=== PATIENT | female | born 1970 | race Caucasian/White ===

== ENCOUNTER 2020-07-18 09:32 | Outpatient (CLI) | payer OTHER, SELFPAY ==
--- NOTE | ~2020-07-18 | US_ITS ---
EXAMINATION:US venous doppler LE RT INDICATION:Right calf pain TECHNIQUE: Multiple grayscale, color flow and Doppler images of the right lower extremity deep venous systems were obtained and reviewed. COMPARISON:09/06/2018 FINDINGS: The common femoral, superficial femoral and popliteal veins demonstrate normal respiratory variation, augmentation and compressibility. Color flow is also seen within the posterior tibial, pe roneal, greater saphenous and profunda veins. IMPRESSION: 1: No lower extremity deep venous thrombosis. Reviewed, dictated and finalized at location B.
== END 2020-07-18 09:33 | disposition home or self-care (01) ==
PROVIDERS: PCP Physician Assistant; Visit Provider Physician Assistant
DX: M79.661 Pain in right lower leg (principal)
CPT/HCPCS: 93971

== ENCOUNTER 2021-08-11 15:05 | Outpatient (CLI) | payer OTHER, SELFPAY ==
--- NOTE | 2021-08-12 12:14 | WPDPFTINT ---
PFT Procedure Performed PFT Procedure Performed Spirometry with Pre/Post Bronchodilator Plethysmography (Lung Vol) Diffusing Cap (DLCO) Flow Vol Loop PFT Interpretation This is a pulmonary function test with pre and post-bronchodilator spirometry, plethysmography and diffusing capacity. The test was performed and results interpreted in accordance with the 2019 and 2005 ATS/ERS Task Force guidelines respectively using the Global Lung Function Initiative-2012 reference equations. Patient demonstrated good effort and cooperation. Reproducibility criteria were met. The quality of the pre bronchodilator spirometry maneuver was Grade B and post bronchodilator spirometry maneuver was Grade A. Findings: Spirometry: The contour the inspiratory and expiratory flow tracing are normal. The pre bronchodilator FVC is 3.40 L, 93% predicted. The pre bronchodilator FEV1 is 2.79 L, 96% predicted. The FEV1: FVC ratio is 82%. The post bronchodilator FVC is 3.35 L, representing 1% decrease. The post bronchodilator FEV1 is 2.65 L, representing a 5% decrease. Plethysmography: The total lung capacity is 5.04 L, 94% predicted. The functional residual capacity is 2.70 L, 89% predicted. The residual volume is 1.53 L, 79% predicted. Diffusion capacity: The absolute diffusion capacity is 21.7, 93% predicted. The diffusing capacity corrected for alveolar volume is 5.10, 114% predicted. Impression: The spirometry is normal without evidence of an obstructive abnormality. There is no significant improvement after inhaling a single dose of albuterol. The lung volumes are normal. The diffusing capacity is normal. There are no prior studies for comparison
== END 2021-08-11 15:06 | disposition home or self-care (01) ==
LOC: ANHPFT 15:07
PROVIDERS: PCP Physician Assistant; Visit Provider Physician Assistant
DX: R05.3 Chronic cough (principal)
CPT/HCPCS: 94060; 94726; 94729

== ENCOUNTER → 2022-02-02 10:57 | Outpatient (CLI) | payer OTHER, SELFPAY ==
--- NOTE | ~2022-02-02 | XR_ITS ---
EXAMINATION: XR chest 2V DATE: 02/02/2022 11:27 INDICATION: Cough TECHNIQUE: PA and lateral views of the chest are obtained. COMPARISON: 02/27/2019 FINDINGS: There are subtle, patchy airspace opacities of the left midlung zone. There is no pleural e ffusion or pneumothorax. The cardiomediastinal silhouette is normal. The visualized bones and soft ti ssues are unremarkable. IMPRESSION: 1. Patchy airspace opacities of the left midlung zone, likely pneumonia. Reviewed, dictated and finalized at location B.
== END ==
PROVIDERS: PCP Physician Assistant; Visit Provider Physician Assistant
DX: R05.1 Acute cough (principal); R91.8 Other nonspecific abnormal finding of lung field
CPT/HCPCS: 71046

== ENCOUNTER → 2022-02-12 10:02 | Outpatient (CLI) | payer OTHER, SELFPAY ==
--- NOTE | ~2022-02-12 | XR_ITS ---
EXAMINATION: XR chest 2V 02/12/2022 10:27 INDICATION: Pneumonia PROCEDURE: 2 view chest COMPARISON: 02/02/2022 FINDINGS: The lungs are clear. The cardiomediastinal silhouette is within normal limits. There are no pleural effusions. There is no pneumothorax suspected. IMPRESSION: 1: NO ACUTE CARDIOPULMONARY DISEASE. Reviewed, dictated and finalized at location A.
== END ==
PROVIDERS: PCP Physician Assistant; Visit Provider Physician Assistant
DX: J18.9 Pneumonia, unspecified organism (principal)
CPT/HCPCS: 71046

== ENCOUNTER 2022-04-18 11:09 | Outpatient (CLI) | payer OTHER, SELFPAY ==
[2022-04-18 12:17] LABS: D Dimer 0.61 ug/mL (<0.48)
== END 2022-04-18 11:10 | disposition home or self-care (01) ==
LOC: ANHLAB 11:11
PROVIDERS: PCP Physician Assistant; Visit Provider Physician Assistant
DX: Z86.711 Personal history of pulmonary embolism (principal)
CPT/HCPCS: 36415; 85380

== ENCOUNTER 2022-04-18 15:30 | Outpatient (CLI) | payer OTHER, SELFPAY ==
--- NOTE | ~2022-04-18 | US_ITS ---
EXAMINATION: US venous doppler LE RT DATE: 04/18/2022 15:57 INDICATION: D-DIMER ABOVE REFERENCE RANGE, . Right lower limb pain. TECHNIQUE: Grayscale images without and with compression and Doppler images of the right lower extrem ity veins were obtained. COMPARISON: None FINDINGS: The right common femoral vein, profunda (deep) femoral vein, femoral vein, popliteal vein, peroneal v ein, posterior tibial veins, gastrocnemius vein, and greater saphenous vein are patent. IMPRESSION: 1. Patent right lower extremity veins. No evidence of deep venous thrombosis. Reviewed, dictated and finalized at location K.
== END 2022-04-18 15:31 | disposition home or self-care (01) ==
PROVIDERS: PCP Physician Assistant; Visit Provider Physician Assistant
DX: R79.1 Abnormal coagulation profile (principal)
CPT/HCPCS: 36415; 85380; 93971

== ENCOUNTER → 2022-06-13 07:46 | Outpatient (CLI) | payer OTHER, SELFPAY ==
--- NOTE | ~2022-06-13 | CT_ITS ---
EXAMINATION: CTA chest PE protocol DATE: 06/13/2022 08:42 INDICATION: Shortness of breath TECHNIQUE: Computed tomography angiography (CTA) of the chest was performed with 100 mL Omnipaque-350 intravenous contrast timed to evaluate the pulmonary arteries. Coronal maximum intensity projection 3D-reconstructions were created by the technologist. The dose-length product (DLP) was 499.10 mGy-cm. Automated exposure control and iterative reconstruction technique were employed. COMPARISON: 02/27/2019 FINDINGS: The pulmonary arteries are well-opacified. No pulmonary embolism is identified. There are scattered stable pulmonary nodules measuring up to 4 mm. Mild dependent atelectasis is noted. No pleu ral effusion or pneumothorax. No pathologically enlarged thoracic lymph nodes are identified. The hea rt size is normal. Right thyroid nodules measure up to 1.5 cm. There is mild thoracic spondylosis. IMPRESSION: 1. No pulmonary embolism or acute cardiopulmonary abnormality. 2. Right thyroid nodules measuring up to 1.5 cm. Consider thyroid ultrasound for risk stratification. Reviewed, dictated and finalized at location B. IMPRESSION: 1. No pulmonary embolism or acute cardiopulmonary abnormality. 2. Right thyroid nodules measuring up to 1.5 cm. Consider thyroid ultrasound fo r risk stratification.
--- NOTE | ~2022-06-13 | MR_ITS ---
EXAMINATION: MR lumbar spine wo con DATE: 06/13/2022 08:22 INDICATION: Lumbar radiculopathy. Low back pain. TECHNIQUE: Magnetic resonance imaging (MRI) of the lumbar spine was performed without intravenous con trast. Sequences included sagittal T2-weighted FSE, sagittal T2-weighted FS FSE, sagittal T1-weighted FSE, and axial T2-weighted FSE. COMPARISON: None FINDINGS: There is 11 degrees levoscoliosis of lumbar spine. There is 3 mm retrolisthesis of L4 on L5 . Vertebral body heights are normal. There is mildly decreased disc height at L2-L3. The distal spina l cord signal intensity is normal. The conus medullaris is at L1-L2. The following disc levels are sp ecifically discussed: L1-L2: There is a right central protrusion. There is mild bilateral facet joint osteoarthritis. There is no neural foraminal stenosis. There is mild central canal stenosis. L2-L3: The disc is bulging and has an annular fissure. There is mild bilateral facet joint osteoarthr itis. There is mild bilateral neural foraminal stenosis. There is mild central canal stenosis. L3-L4: The disc is bulging and has an annular fissure. There is severe bilateral facet joint osteoart hritis. There is mild bilateral neural foraminal stenosis. There is mild central canal stenosis. L4-L5: The disc is bulging and has an annular fissure. There is severe bilateral facet joint osteoart hritis. There is mild bilateral neural foraminal stenosis. There is mild central canal stenosis. L5-S1: The disc is bulging and has an annular fissure. There is moderate bilateral facet joint osteoa rthritis. There is mild bilateral neural foraminal stenosis. There is mild central canal stenosis. IMPRESSION: 1. Mild lumbar spondylosis. 2. Lumbar levoscoliosis. Reviewed, dictated and finalized at location A.
== END ==
PROVIDERS: PCP Physician Assistant; Visit Provider Physician Assistant
DX: R79.1 Abnormal coagulation profile (principal); E04.2 Nontoxic multinodular goiter; M47.26 Other spondylosis with radiculopathy, lumbar region
CPT/HCPCS: 71275; 72148; Q9967

== ENCOUNTER → 2022-09-26 14:17 | Outpatient (CLI) | payer OTHER, SELFPAY ==
--- NOTE | ~2022-09-26 | CT_ITS ---
EXAMINATION: CT abdomen pelvis w con DATE: 09/26/2022 15:31 INDICATION: Left upper quadrant abdominal pain TECHNIQUE: Computed tomography (CT) of the abdomen and pelvis was performed with 100 mL Omnipaque-350 intravenous contrast. Automated exposure control and iterative reconstruction technique were employe d. The dose-length product was 917.20 mGy-cm. COMPARISON: None FINDINGS: Mild atelectasis at the bilateral lung bases. Heart size is normal. No pericardial or pleural effusio n. 4 mm cyst in the right hepatic lobe. The gallbladder, spleen, pancreas, bilateral adrenal glands a nd kidneys are normal. There are few scattered colonic diverticula without adjacent inflammatory alexander ge to suggest diverticulitis. Small bowel and appendix are normal. Tiny fat-containing umbilical rik ia. Bladder, anteverted uterus and bilateral adnexa are unremarkable. No free intraperitoneal gas or fluid. No pathologically enlarged abdominal or pelvic lymphadenopathy. Mild upper lumbar levocurvatur e with moderate spondylosis. IMPRESSION: 1. No acute intra-abdominal/pelvic process. Reviewed, dictated and finalized at location A. 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
== END ==
PROVIDERS: PCP Physician Assistant; Visit Provider Physician Assistant
DX: R10.12 Left upper quadrant pain (principal)
CPT/HCPCS: 74177; Q9967

== ENCOUNTER → 2023-11-25 13:00 | Outpatient (CLI) | payer OTHER, SELFPAY ==
--- NOTE | ~2023-11-25 | MM_ITS ---
EXAMINATION: MM screening ml BI w cortes HISTORY: Screening TECHNIQUE: Craniocaudal and mediolateral oblique 3-D tomosynthesis images were obtained and synthetic 2-D images were generated. CAD analysis was submitted and interpreted. COMPARISON: Comparison to multiple prior studies sequentially, with oldest reviewed study dated 11/2013. BREAST PARENCHYMAL COMPOSITION: There are scattered areas of fibroglandular density. FINDINGS: There is no evidence of suspicious mass, calcification, or architectural distortion to sugg est malignancy in either breast. There has been no suspicious interval change. IMPRESSION: 1. No mammographic evidence of malignancy. 2. Recommend routine screening mammography in one year. BI-RADS Category 1: Negative Reviewed, dictated and finalized at location A. 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
== END ==
PROVIDERS: PCP Obstetrics & Gynecology; Visit Provider Obstetrics & Gynecology
DX: Z12.31 Encounter for screening mammogram for malignant neoplasm of breast (principal)
CPT/HCPCS: 77063; 77067

== ENCOUNTER 2024-03-16 15:58 | Outpatient (CLI) | payer OTHER, SELFPAY ==
--- NOTE | ~2024-03-16 | XR_ITS ---
EXAMINATION: XR chest 2V 03/16/2024 16:10 INDICATION: Chronic cough PROCEDURE: 2 view chest COMPARISON: Comparison to multiple prior studies sequentially, with oldest reviewed study dated 07/01. FINDINGS: The lungs are clear. The cardiomediastinal silhouette is within normal limits. There are no pleural effusions. There is no pneumothorax suspected. IMPRESSION: 1: NO ACUTE CARDIOPULMONARY DISEASE. Reviewed, dictated and finalized at location B.
== END 2024-03-16 15:59 ==
LOC: MICIMG 15:59
PROVIDERS: PCP Obstetrics & Gynecology; Visit Provider Physician Assistant
DX: R05.3 Chronic cough (principal)
CPT/HCPCS: 71046

== ENCOUNTER 2024-04-29 18:41 | Emergency (ER) | payer OTHER, SELFPAY ==
--- NOTE | ~2024-04-29 | XR_ITS ---
EXAMINATION: XR foot RT min 3V DATE: 04/29/2024 19:02 INDICATION: Right foot pain post injury TECHNIQUE: Dorsoplantar, two oblique and lateral views of the right foot were obtained. COMPARISON: None. FINDINGS: 25 degrees hallux valgus and bunion with mild hypertrophic change at the medial head of the first met atarsal. No fracture or traumatic malalignment. Mild osteoarthritis at the first metatarsophalangeal joint but with moderate osteoarthritis at the articulation with the first metatarsal sesamoids. Addit ional mild osteoarthritis at a few of the tarsal metatarsal and interphalangeal joints. Soft tissues are unremarkable. IMPRESSION: 1. No acute osseous abnormality. 2. Hallux valgus with bunion and mild to moderate polyarticular osteoarthritis. Reviewed, dictated and finalized at location A.
--- NOTE | 2024-04-29 18:44 | ED.LOWEXIN ---
HPI - Extremity Injury (Lower) General Chief Complaint: Extremity Injury, Lower Stated Complaint: INJURED R FOOT Time Seen by Provider: 04/29/24 18:43 Source: patient Mode of arrival: ambulatory Limitations: no limitations History of Present Illness HPI Narrative: Loreta is a 53-year-old female patient presenting to the clinic today with complaints of a right foot injury. She reports she tripped over her foot today and twisted it and is having pain to the midfoot in between the great toe and 2nd toe. States pain is worse with bearing weight Related Data Home Medications Medication Instructions Recorded Confirmed clobetasol 0.05 % topical ointment 1 applic topical DIRECTED 04/29/24 04/29/24 meloxicam 15 mg tablet 15 mg PO DIRECTED 04/29/24 04/29/24 pimecrolimus 1 % topical cream 1 applic topical DIRECTED 04/29/24 04/29/24 Allergies Allergy/AdvReac Type Severity Reaction Status Date / Time No Known Allergies Allergy Unverified 04/29/24 18:47 Review of Systems Review of Systems: Pertinent positives per HPI. Patient denies any fever, chills, rash, headache, visual changes, dizziness, cough, runny nose, sore throat, shortness of breath, chest pain, palpitations, nausea, vomiting, diarrhea, constipation, abdominal pain, or any urinary issues. PMFSH Comments At the time of my signature, I reviewed and agree with the nursing past medical, surgical, social, and family history. There is no relevant family history pertinent to the patient complaint. Exam Narrative: General: Well-developed, well nourished, in no apparent distress Head: Normocephalic, atraumatic. Cardio: Regular rate and rhythm, s1 and s2 normal, no murmur appreciated. Resp: Clear to auscultation bilaterally, no rhonchi, rales, wheezing or rubs. Musculoskeletal: No deformity, tender to palpation over the midfoot in between the great toe and 2nd toe, grossly normal range of motion, muscle strength strong and equal, peripheral pulse strong, no edema, no cyanosis, normal gait and station Course Course Emergency Course: Portions of this record may have been created with voice recognition software. Level of Care: Express Care Visit Vital Signs Vital signs: Vital signs reviewed MDM - Extremity Injury (Lower) MDM Narrative Medical decision making narrative: At the time of visit patient is resting comfortably on the exam table. Patient appears to be nontoxic. Diagnostics: X-ray of the right foot she is negative for any sign of fracture or malalignment Plan: I suspect patient has acute pain/foot sprain. Supportive measures were discussed with the patient and they voiced understanding discharge instructions and agrees to treatment plan. Return precautions reviewed Differential Diagnosis Differential diagnosis: Likely ankle sprain and strain, fracture of toe and other (Foot fracture) Imaging Data Radiologist's impression: ITS Impressions Foot X-Ray 04/29/24 19:16 IMPRESSION: 1. No acute osseous abnormality. 2. Hallux valgus with bunion and mild to moderate polyarticular osteoarthritis. Discharge Plan Discharge Clinical Impression: Acute foot pain Qualifiers: Laterality: right Qualified Code(s): M79.671 - Pain in right foot Foot sprain Qualifiers: Encounter type: initial encounter Laterality: right Qualified Code(s): S93.601A - Unspecified sprain of right foot, initial encounter Patient Disposition: Home, Self-Care Condition: Stable Instructions: Antibiotic Form, Foot Sprain (ED) Additional Instructions: X-rays negative for any acute fracture or malalignment of the right foot Rest, ice, compress, and elevate May take Tylenol/Motrin as needed for pain-hold taking Motrin if taking meloxicam Follow-up with your primary care doctor in 3-5 days if symptoms persist or sooner if they worsen Prescriptions: No Action meloxicam 15 mg tablet 15 mg PO DIRECTED pimecrolimus 1 % cream
[2024-04-29 18:52] VITALS: BP 129/87; PULSE 100; RESP 16; TEMP 36.6; O2SAT 99
== END 2024-04-29 19:30 | disposition home or self-care (01) ==
PROVIDERS: Emergency Provider Nurse Practitioner Family; PCP Physician Assistant
DX: S93.601A Unspecified sprain of right foot, initial encounter (principal); W18.49XA Other slipping, tripping and stumbling without falling, initial encounter
CPT/HCPCS: 73630; 99213; G0463

== ENCOUNTER 2024-07-27 09:04 | Outpatient (CLI) | payer OTHER, SELFPAY ==
--- NOTE | ~2024-07-27 | XR_ITS ---
EXAMINATION: XR hand LT min 3V DATE: 07/27/2024 09:17 INDICATION: Trigger thumb, left thumb. TECHNIQUE: 3 views of left hand were obtained. COMPARISON: None. FINDINGS: Alignment is normal. No fracture. There is mild osteoarthritis of first carpometacarpal juan nt. IMPRESSION: 1. Mild osteoarthritis of first carpometacarpal joint. Reviewed, dictated and finalized at location B.
== END 2024-07-27 09:05 | disposition home or self-care (01) ==
LOC: ANHIMG 09:06
PROVIDERS: PCP Physician Assistant; Visit Provider Plastic Surgery
DX: M65.312 Trigger thumb, left thumb (principal); M18.12 Unilateral primary osteoarthritis of first carpometacarpal joint, left hand; M19.042 Primary osteoarthritis, left hand
CPT/HCPCS: 73130

== ENCOUNTER 2024-11-26 14:09 | Outpatient (CLI) | payer OTHER, SELFPAY | END 2024-11-26 14:10 | disposition home or self-care (01) | LOC: ANHIMG 14:15 | PROVIDERS: PCP Physician Assistant; Visit Provider Physician Assistant | DX: M79.89 Other specified soft tissue disorders (principal) | CPT/HCPCS: 93971 ==

== ENCOUNTER 2025-01-19 12:37 | Outpatient (CLI) | payer OTHER, SELFPAY ==
--- NOTE | ~2025-01-19 | MM_ITS ---
EXAMINATION: MM screening ml BI w cortes HISTORY: Screening TECHNIQUE: Craniocaudal and mediolateral oblique 3-D tomosynthesis images were obtained and synthetic 2-D images were generated. CAD analysis was submitted and interpreted. COMPARISON: Comparison to multiple prior studies sequentially, with oldest reviewed study dated 12/15. BREAST PARENCHYMAL COMPOSITION: Not dense: There are scattered areas of fibroglandular density. FINDINGS: There is no evidence of suspicious mass, calcification, or architectural distortion to sugg est malignancy in either breast. There has been no suspicious interval change. IMPRESSION: 1. No mammographic evidence of malignancy. 2. Recommend routine screening mammography in one year. BI-RADS Category 1: Negative Reviewed, dictated and finalized at location A.
== END 2025-01-19 12:38 | disposition home or self-care (01) ==
PROVIDERS: PCP Physician Assistant; Visit Provider Obstetrics & Gynecology
DX: Z12.31 Encounter for screening mammogram for malignant neoplasm of breast (principal)
CPT/HCPCS: 77063; 77067